=== PATIENT | male | born 1950 | race Caucasian/White ===

== ENCOUNTER → 2021-07-18 11:53 | Outpatient (CLI) | payer MEDICARE, SELFPAY ==
--- NOTE | ~2021-07-18 | XR_ITS ---
EXAMINATION: XR knee LT min 4V EXAM DATE: 07/18/2021 12:39 INDICATION: Acute Pain Of Left Knee. M25.562 TECHNIQUE: Left knee frontal, crosstable lateral, orthogonal oblique projections for interpretation. Additional sunrise projection. There are no prior studies for comparison. FINDINGS: There is rather sharply marginated left suprapatellar enthesopathy, can't exclude acute fra cture through this. Please check for suprapatellar point tenderness. No other suspicion of acute find ings. No sizable joint effusion. Mild tricompartmental primary osteoarthritis. There are dense menisc al calcifications. Chondrocalcinosis can be an age related finding, but with other possible etiologie s including CPPD, parathyroid disorders, hemochromatosis, gout. IMPRESSION: 1. Sharply marginated left suprapatellar enthesopathy, can't exclude acute avulsion through this; cl inical correlation. 2. Mild osteoarthritis. 3. Chondrocalcinosis. Reviewed, dictated and finalized at location A. HUMOR V[employer]OR IMPRESSION: 1. Sharply marginated left suprapatellar enthesopathy, can't exclude acute avu lsion through this; clinical correlation. 2. Mild osteoarthritis. 3. Chondrocalcinosis.
== END ==
PROVIDERS: PCP Internal Medicine; Referring Provider Internal Medicine; Visit Provider Internal Medicine
DX: M25.562 Pain in left knee (principal); M77.8 Other enthesopathies, not elsewhere classified; M17.12 Unilateral primary osteoarthritis, left knee; M11.262 Other chondrocalcinosis, left knee
CPT/HCPCS: 73564